=== PATIENT | male | born 1995 | race Caucasian/White ===

== ENCOUNTER 2021-06-02 09:44 | Emergency (ER) | payer OTHER ==
[~2021-06-02] VITALS: Ht 175.3 cm; Wt 77.3 kg
[~2021-06-02 09:44] MED LIST: NOCURR
[2021-06-02] MEDS ORDERED: NALO4SPR NASAL (12:09)
[2021-06-02 14:01] VITALS: BP 121/68
== END 2021-06-02 14:01 | disposition home or self-care (01) ==
LOC: EMS 09:49
DX: T40.411A Poisoning by fentanyl or fentanyl analogs, accidental (unintentional), initial encounter (principal); Y92.89 Other specified places as the place of occurrence of the external cause
CPT/HCPCS: 99283; Z7502

== ENCOUNTER 2022-01-26 15:50 | Emergency (ER) | payer OTHER ==
[~2022-01-26] VITALS: Ht 175.3 cm; Wt 77.0 kg
[~2022-01-26 15:50] MED LIST changes: +NALO4SPR NASAL
[2022-01-26 22:39] VITALS: BP 118/75
== END 2022-01-27 00:38 | disposition home or self-care (01) ==
LOC: EMS 15:51
DX: T40.2X1A Poisoning by other opioids, accidental (unintentional), initial encounter (principal); Y92.89 Other specified places as the place of occurrence of the external cause; F12.90 Cannabis use, unspecified, uncomplicated
CPT/HCPCS: 99285; Z7502